=== PATIENT | male | born 1965 | race African-American/Black ===

== ENCOUNTER 2018-03-25 12:30 | Emergency (ER) | payer MEDICAID ==
[~2018-03-25] VITALS: Ht 182.9 cm; Wt 83.9 kg
[2018-03-25 12:35] VITALS: BP 124/62
== END 2018-03-25 13:52 | disposition home or self-care (01) ==
LOC: ER 12:30
DX: L02.31 Cutaneous abscess of buttock (principal); Z88.5 Allergy status to narcotic agent; Z88.2 Allergy status to sulfonamides

== ENCOUNTER 2018-07-12 15:07 | Emergency (ER) | payer MEDICAID ==
[~2018-07-12] VITALS: Ht 185.4 cm; Wt 82.6 kg
[2018-07-12 16:43] VITALS: BP 118/66
== END 2018-07-12 17:28 | disposition home or self-care (01) ==
LOC: ER 15:11
DX: J20.9 Acute bronchitis, unspecified (principal)
CPT/HCPCS: 71046